=== PATIENT | female | born 1995 | race Caucasian/White ===

== ENCOUNTER 2018-01-27 14:45 | Emergency (ER) | payer MEDICAID ==
[~2018-01-27] VITALS: Ht 165.1 cm; Wt 65.5 kg
[2018-01-27 14:47] VITALS: BP 132/83
[2018-01-27] MEDS ORDERED: HYDROcodone/APAP 5/325 TABLET PO ONE (15:30)
[2018-01-27] MEDS ORDERED: METHOCARBAMOL 750 MG TABLET PO ONE (15:30)
[2018-01-27] MEDS ORDERED: ONDANSETRON ODT 4 MG PO ONE (15:30)
[2018-01-27] MEDS ORDERED: KETOROLAC 30 MG/1 ML IM ONE (15:30)
[2018-01-27] MEDS ORDERED: KETOROLAC 30 MG/1 ML ONE (15:31)
[2018-01-27] MEDS ORDERED: METHOCARBAMOL 750 MG TABLET ONE (15:31)
[2018-01-27] MEDS ORDERED: HYDROcodone/APAP 5/325 TABLET ONE (15:31)
[2018-01-27] MEDS ORDERED: ONDANSETRON ODT 4 MG ONE (15:31)
== END 2018-01-27 16:01 | disposition home or self-care (01) ==
LOC: ED 15:45
DX: S39.012A Strain of muscle, fascia and tendon of lower back, initial encounter (principal); F41.1 Generalized anxiety disorder; J45.909 Unspecified asthma, uncomplicated; X58.XXXA Exposure to other specified factors, initial encounter; Y93.89 Activity, other specified; Y92.89 Other specified places as the place of occurrence of the external cause; Y99.8 Other external cause status
CPT/HCPCS: 96372; 99283; J1885